=== PATIENT | female | born 1980 | race Caucasian/White ===

== ENCOUNTER 2017-01-23 11:11 | Emergency (ER) | payer MEDICAID, OTHER ==
[2017-01-23 11:16] VITALS: BP 113/79; PULSE 78; RESP 20; TEMP 97.8; O2SAT 99
--- NOTE | 2017-01-23 11:54 | C.PDOC ---
History Of Present Illness 36 y/o F p/w wound to adominal pain x 2 months. Patient states began as blister and was seen by PMD for it 1 week prior and had blood work and blood culture sent but has no results. She states that since then, the erythema has gotten larger and the central wound has become black in color so she decided to come to ED. She denies fever, chills, vomiting, dyspnea. She states that since she gave years ago, she has had abscesses frequently, usually on the breasts. Time Seen by Provider: 01/23/17 11:26 Chief Complaint (Nursing): Abdominal Pain Past Medical History Vital Signs: Last Vital Signs Temp 97.8 F 01/23/17 11:15 Pulse 78 01/23/17 11:15 Resp 20 01/23/17 11:15 BP 113/79 01/23/17 11:15 Pulse Ox 99 01/23/17 12:16 Family History: States: No Known Family Hx - Social History Hx Alcohol Use: Yes Hx Substance Use: No - Immunization History Hx Tetanus Toxoid Vaccination: No Hx Influenza Vaccination: No Hx Pneumococcal Vaccination: No Review Of Systems Except As Marked, All Systems Reviewed And Found Negative. Constitutional: Positive for: Fever Respiratory: Negative for: Shortness of Breath Physical Exam - Physical Exam Additional Physical Exam Comments: Constitutional: No acute distress. Head: Normocephalic. Atraumatic. Eyes: PERRL. ENT: Moist mucous membranes. Neck: Supple. Cardiovascular: Regular rate. Radial pulse 2+ bilaterally. Chest: No tenderness. Respiratory: Clear to auscultation bilaterally. GI: Soft. Nontender. Nondistended. Back: No CVA tenderness. Musculoskeletal: No tenderness or swelling of extremities. Skin: Circular area of indurated, erythema with central necrotic area without active discharge. Neurologic: Alert, no focal deficit. ED Course And Treatment O2 Sat by Pulse Oximetry: 99 (RA) Pulse Ox Interpretation: Normal Medical Decision Making Medical Decision Making: Wound is already ruptured abscess without active drainage. I called patient's PMD's office, outpatient labs, inpatient lab to find patient's lab results. Lab results faxed to me. Unremarkable CBC/CMP and blood cultures negative. Will discharge patient, instructed to f/u with PMD, instructed to return to the ED for fever or discharge of pus. Disposition - Disposition Referrals: Arsalan Alcala MD [Medical Doctor] - Disposition: HOME/ ROUTINE Disposition Time: 12:26 Condition: STABLE Instructions: Abscess (ED) Forms: [facility] (Serbian) - Clinical Impression Clinical Impression: Boil - PA / [employer] / Resident Statement MD/DO has examined the patient and agrees with the treatment plan. - Scribe Statement The provider has reviewed the documentation as recorded by the Hortenciaiblouie Shell All medical record entries made by the Hortenciaiblouie were at my direction and personally dictated by me. I have reviewed the chart and agree that the record accurately reflects my personal performance of the history, physical exam, medical decision making, and the department course for this patient. I have also personally directed, reviewed, and agree with the discharge instructions and disposition.
== END 2017-01-23 12:36 | disposition home or self-care (01) ==
LOC: C.ER 11:11
DX: L02.221 Furuncle of abdominal wall (principal)